=== PATIENT | female | born 1945 | race Caucasian/White ===

== ENCOUNTER 2023-10-31 12:27 | Outpatient (CLI) | payer MEDICARE, BC | END 2023-10-31 23:59 | disposition home or self-care (01) | LOC: MRI 12:27 | PROVIDERS: ATTEND Physician Assistant Surgical | DX: M51.37 Other intervertebral disc degeneration, lumbosacral region (principal); M47.816 Spondylosis without myelopathy or radiculopathy, lumbar region; M25.552 Pain in left hip; M46.1 Sacroiliitis, not elsewhere classified; M48.061 Spinal stenosis, lumbar region without neurogenic claudication; M51.36 Other intervertebral disc degeneration, lumbar region; M54.50 Low back pain, unspecified; M79.10 Myalgia, unspecified site | CPT/HCPCS: 72148 ==